=== PATIENT | female | born 1970 | race Caucasian/White ===

== ENCOUNTER 2021-02-07 08:19 | Emergency (ER) | payer MEDICAID ==
[~2021-02-07] VITALS: Ht 157.5 cm; Wt 49.9 kg
[2021-02-07 08:19] VITALS: BP 158/112
--- NOTE | 2021-02-07 08:23 | NUR ---
[facility]on[facility] AG via gurney to bed 03.
[2021-02-07] MEDS ORDERED: HALOPERIDOL IM 5 MG/ML VIAL IM ONE (08:25)
[2021-02-07] MEDS ORDERED: LORazepam 2 MG/ML VIAL IM ONE (08:25)
[2021-02-07] MEDS ORDERED: HALOPERIDOL IM 5 MG/ML VIAL ONE (08:28)
[2021-02-07] MEDS ORDERED: LORazepam 2 MG/ML VIAL ONE (08:29)
--- NOTE | 2021-02-07 08:40 | NUR ---
55 Y/O F, HOMELESS, BIBA FOR ALOC. PT SPEECH IS CLEAR, BUT CONFUSED. SAYING RACIAL SLURS, SPITTING, AND COMBATIVE WITH STAFF. STRONG UPPER AND BILATERAL EXTREMITIES. PT CAME IN WITH HARD 4 POINT RESTRAINTS. PT DENIES DRUG USE OR PAIN AT THIS TIME. PMH: UNABLE TO OBTAIN ALLERGIES: UNABLE TO OBTAIN
--- NOTE | 2021-02-07 12:43 | NUR ---
PT IS ABLE TO SIT UP IN BED, BUT REFUSING TO LEAVE OR STAND UP AT THIS TIME. ERMD MADE AWARE
[2021-02-07] MEDS ORDERED: BACITRACIN OINT 500 UNITS/GM PKT TP ONE (13:40)
[2021-02-07] MEDS ORDERED: AMMONIA AROMATIC 1 INHL INH ONE (13:40)
--- NOTE | 2021-02-07 14:44 | NUR ---
Patient discharged with v/s stable. Written and verbal after care instructions given and explained. Patient verbalized understanding. Ambulatory with steady gait. All questions addressed prior to discharge. Advised to follow up with PMD.
[2021-02-07 14:47] VITALS: BP 111/73
== END 2021-02-07 14:44 | disposition home or self-care (01) ==
LOC: EDBD 08:19 → MED 08:19
DX: F31.9 Bipolar disorder, unspecified (principal); F15.10 Other stimulant abuse, uncomplicated; R45.1 Restlessness and agitation
CPT/HCPCS: 96372; 99284; J1630; J2060